=== PATIENT | male | born 1985 | race Caucasian/White ===

== ENCOUNTER 2017-05-03 21:01 | Emergency (ER) | payer MEDICAID ==
--- NOTE | 2017-05-03 21:36 | EDM.PDOC ---
ED HPI GENERAL MEDICAL PROBLEM - General Chief Complaint: General Stated Complaint: PT HAS TOOTHACHE Time Seen by Provider: 05/03/17 21:15 Source of Information: Reports: Patient History Limitations: Reports: No Limitations - History of Present Illness INITIAL COMMENTS - FREE TEXT/NARRATIVE: History of present illness: [Patient presents with numerous dental caries and fractured teeth. Indicates that he's been struggling with continuous multiple areas of abscess and cued including his back upper and lower molars in the area of 15 through 19 as well as front incisors in the area of 7 through 10 and 26 through 23. Indicates he saw his primary care provider was given amoxicillin and some pain medication but he still pending a dental appointment.] Review of systems: As per history of present illness and below otherwise all systems reviewed and negative. Past medical history: As per history of present illness and as reviewed below otherwise noncontributory. Surgical history: As per history of present illness and as reviewed below otherwise noncontributory. Social history: No reported history of drug or alcohol abuse. Family history: As per history of present illness and as reviewed below otherwise noncontributory. Physical exam: HEENT: Atraumatic, normocephalic, pupils reactive, negative for conjunctival pallor or scleral icterus, mucous membranes moist, throat clear, neck supple, nontender, trachea midline. Lungs: Clear to auscultation, breath sounds equal bilaterally, chest nontender. Heart: S1S2, regular, negative for clicks, rubs, or JVD. Abdomen: Soft, nondistended, nontender. Negative for masses or hepatosplenomegaly. Negative for costovertebral tenderness. Pelvis: Stable nontender. Genitourinary: Deferred. Rectal: Deferred. Extremities: Atraumatic, negative for cords or calf pain. Neurovascular unremarkable. Neuro: Awake, alert, oriented. Cranial nerves II through XII unremarkable. Cerebellum unremarkable. Motor and sensory unremarkable throughout. Exam nonfocal. Global assessment is benign save is noted with the significant amount of dental issues as described in history of present illness. Diagnostics: [] Therapeutics: [] Impression: [Dental caries, abscess, fractured teeth] Plan: [Augmentin, Tylenol 3] Definitive disposition and diagnosis as appropriate pending reevaluation and review of above. Left Upper Tooth/Teeth Pain Score (Numeric/FACES): 7 - Related Data Allergies Allergy/AdvReac Type Severity Reaction Status Date / Time No Known Allergies Allergy Verified 05/03/17 21:25 Home Meds: Home Meds . [No Known Home Meds] 05/03/17 [History] Past Medical History Cardiovascular History: Reports: Hypertension Psychiatric History: Reports: Anxiety, Depression, PTSD Hematologic History: Reports: None - Infectious Disease History Infectious Disease History: Reports: Chicken Pox - Past Surgical History Other Musculoskeletal Surgeries/Procedures:: right big toe removed Social & Family History - Family History Family Medical History: Noncontributory - Tobacco Use Smoking Status *Q: Current Every Day Smoker Years of Tobacco use: 31 Packs/Tins Daily: 1 - Caffeine Use Caffeine Use: Reports: Energy Drinks, Soda Caffeine Use Comment: 2-3drinkls each/day - Recreational Drug Use Recreational Drug Use: No ED ROS GENERAL - Review of Systems Review Of Systems: See Below (History of present illness) ED EXAM, GENERAL - Physical Exam Exam: See Below (See history of present illness) Course - Vital Signs Last Recorded V/S: Last Vital Signs Temp 36.0 C 05/03/17 21:13 Pulse 86 05/03/17 21:13 Resp 19 05/03/17 21:13 BP 172/90 H 05/03/17 21:13 Pulse Ox 98 05/03/17 21:13 Departure - Departure Time of Disposition: 21:35 Disposition: Home, Self-Care 01 Condition: Good Clinical Impression: Dental abscess, Dental caries into pulp - Discharge Information Forms: ED Department Discharge Additional Instructions: The following information is given to patients seen in the emergency department who are being discharged to home. This information is to outline your options for follow-up care. We provide all patients seen in our emergency department with a follow-up referral. The need for follow-up, as well as the timing and circumstances, are variable depending upon the specifics of your emergency department visit. If you don't have a primary care physician on staff, we will provide you with a referral. We always advise you to contact your personal physician following an emergency department visit to inform them of the circumstance of the visit and for follow-up with them and/or the need for any referrals to a consulting specialist. The emergency department will also refer you to a specialist when appropriate. This referral assures that you have the opportunity for follow-up care with a specialist. All of these measure are taken in an effort to provide you with optimal care, which includes your follow-up. Under all circumstances we always encourage you to contact your private physician who remains a resource for coordinating your care. When calling for follow-up care, please make the office aware that this follow-up is from your recent emergency room visit. If for any reason you are refused follow-up, please contact the [facility] Emergency Department at and asked to speak to the emergency department charge nurse. Take medication as directed Follow-up with dentist LUIS Return to ED as needed as discussed
[2017-05-03 22:19] VITALS: BP 166/88
== END 2017-05-03 22:15 | disposition home or self-care (01) ==
LOC: MW.ED 21:01
DX: K02.9 Dental caries, unspecified (principal); K04.7 Periapical abscess without sinus; K03.81 Cracked tooth; I10 Essential (primary) hypertension; F17.210 Nicotine dependence, cigarettes, uncomplicated
CPT/HCPCS: 99282; 99283

== ENCOUNTER 2019-01-08 20:03 | Emergency (ER) | payer OTHER ==
[2019-01-08] MEDS ORDERED: Benzocaine 20% Topical Spray UD MUCMEM ONE (20:06)
[2019-01-08] MEDS ORDERED: Lidocaine 2% Viscous Solution 15 ML Cup PO ONE (20:06)
--- NOTE | 2019-01-08 20:07 | EDM.PDOC ---
ED HPI GENERAL MEDICAL PROBLEM - General Chief Complaint: ENT Problem Stated Complaint: PT HAS TOOTHACHE Time Seen by Provider: 01/08/19 20:06 Source of Information: Reports: Patient History Limitations: Reports: No Limitations - History of Present Illness INITIAL COMMENTS - FREE TEXT/NARRATIVE: HISTORY AND PHYSICAL: History of present illness: Patient is a 33-year-old male here with complaint of tooth pain x 4 days. He saw dentist and was given amoxicillin. He states he finished them and has not had any relief of symptoms. He currently can not afford to have tooth pulled. He denies fevers or chills and is otherwise in his usual state of good health. Review of systems: As per history of present illness and below otherwise all systems reviewed and negative. Past medical history: As per history of present illness and as reviewed below otherwise noncontributory. Surgical history: As per history of present illness and as reviewed below otherwise noncontributory. Social history: No reported history of drug or alcohol abuse. Family history: As per history of present illness and as reviewed below otherwise noncontributory. Physical exam: General: Patient sitting comfortably in no acute distress and nontoxic appearing HEENT: Poor dentition throughout. Swelling and erythema of gums of the left lower back molar. Atraumatic, normocephalic, pupils reactive, negative for conjunctival pallor or scleral icterus, mucous membranes moist, throat clear, neck supple, nontender, trachea midline. No meningeal signs. Lungs: Clear to auscultation, breath sounds equal bilaterally, chest nontender. Heart: S1S2, regular, negative for clicks, rubs, or overt murmur. Abdomen: Soft, nondistended, nontender. Negative for masses or hepatosplenomegaly. Negative for costovertebral tenderness. Pelvis: Stable nontender. Genitourinary: Deferred. Rectal: Deferred. Extremities: Atraumatic, negative for cords or calf pain. Neurovascular unremarkable. Neuro: Awake, alert, oriented. Cranial nerves II through XII unremarkable. Cerebellum unremarkable. Motor and sensory unremarkable throughout. Exam nonfocal. Notes: Diagnostics: None Therapeutics: Dental balls Toradol 60mg IM Prescriptions: Clindamycin Impression: Dentalgia, dental infection Plan: 1. Take antibiotic as instructed. Alternate tylenol and motrin and use dental balls as needed. 2. Follow up with dentist. 3. Return to ED As needed as discussed Definitive disposition and diagnosis as appropriate pending reevaluation and review of above. tooth Pain Score (Numeric/FACES): 5 - Related Data Allergies Allergy/AdvReac Type Severity Reaction Status Date / Time No Known Allergies Allergy Verified 01/08/19 20:10 Home Meds: Home Meds Clindamycin HCl 300 mg PO TID 7 Days #21 capsule 01/08/19 [Rx] Past Medical History Cardiovascular History: Reports: Hypertension Psychiatric History: Reports: Anxiety, Depression, PTSD Hematologic History: Reports: None - Infectious Disease History Infectious Disease History: Reports: Chicken Pox - Past Surgical History Other Musculoskeletal Surgeries/Procedures:: right big toe removed Social & Family History - Family History Family Medical History: Noncontributory - Caffeine Use Caffeine Use: Reports: Energy Drinks, Soda Caffeine Use Comment: 2-3drinkls each/day ED ROS ENT - Review of Systems Review Of Systems: ROS reveals no pertinent complaints other than HPI. ED EXAM, ENT - Physical Exam Exam: See Below (see dictation) Course - Vital Signs Last Recorded V/S: Last Vital Signs Temp 97 F 01/08/19 20:03 Pulse 83 01/08/19 20:03 Resp 18 01/08/19 20:03 BP 152/94 H 01/08/19 20:03 Pulse Ox 95 01/08/19 20:03 - Orders/Labs/Meds Orders: Active Orders 24 hr Category Date Time Status Ketorolac [Toradol] Med 01/08/19 20:26 Once 60 mg IM ONETIME ONE Meds: Medications Discontinued Medications Generic Name Dose Route Start Last Admin Trade Name Jose PRN Reason Stop Dose Admin Benzocaine 2 each 01/08/19 20:06 01/08/19 20:18 Hurricaine One 20% MUCMEM 01/08/19 20:07 2 each ONETIME ONE Administration Lidocaine HCl 15 ml 01/08/19 20:06 01/08/19 20:17 Xylocaine 2% Viscous PO 01/08/19 20:07 15 ml ONETIME ONE Administration Departure - Departure Time of Disposition: 20:29 Disposition: Home, Self-Care 01 Condition: Good Clinical Impression: Dentalgia, Dental infection - Discharge Information Forms: ED Department Discharge Additional Instructions: The following information is given to patients seen in the emergency department who are being discharged to home. This information is to outline your options for follow-up care. We provide all patients seen in our emergency department with a follow-up referral. The need for follow-up, as well as the timing and circumstances, are variable depending upon the specifics of your emergency department visit. If you don't have a primary care physician on staff, we will provide you with a referral. We always advise you to contact your personal physician following an emergency department visit to inform them of the circumstance of the visit and for follow-up with them and/or the need for any referrals to a consulting specialist. The emergency department will also refer you to a specialist when appropriate. This referral assures that you have the opportunity for follow-up care with a specialist. All of these measure are taken in an effort to provide you with optimal care, which includes your follow-up. Under all circumstances we always encourage you to contact your private physician who remains a resource for coordinating your care. When calling for follow-up care, please make the office aware that this follow-up is from your recent emergency room visit. If for any reason you are refused follow-up, please contact the [facility] Emergency Department at and asked to speak to the emergency department charge nurse. 1. Take antibiotic as instructed. Alternate tylenol and motrin and use dental balls as needed. 2. Follow up with dentist. 3. Return to ED As needed as discussed - My Orders Last 24 Hours: My Active Orders 01/08/19 20:26 Ketorolac [Toradol] 60 mg IM ONETIME ONE - Assessment/Plan Last 24 Hours: My Active Orders 01/08/19 20:26 Ketorolac [Toradol] 60 mg IM ONETIME ONE
[2019-01-08 20:13] VITALS: BP 152/94
[2019-01-08] MEDS ORDERED: Ketorolac 60 MG/2 ML SDV IM ONE (20:26)
== END 2019-01-08 20:50 | disposition home or self-care (01) ==
LOC: MW.ED 20:03
DX: K04.7 Periapical abscess without sinus (principal)
CPT/HCPCS: 96372; 99282; A9270; J1885; 99283

== ENCOUNTER 2019-01-29 18:01 | Emergency (ER) | payer OTHER ==
--- NOTE | 2019-01-29 18:10 | EDM.PDOC ---
ED HPI GENERAL MEDICAL PROBLEM - General Chief Complaint: Back Pain or Injury Stated Complaint: BACK PAIN Time Seen by Provider: 01/29/19 18:04 Source of Information: Reports: Patient History Limitations: Reports: No Limitations - History of Present Illness INITIAL COMMENTS - FREE TEXT/NARRATIVE: HISTORY AND PHYSICAL: History of present illness: Patient is a 33-year-old male who presents to the emergency room with complaints of lumbar back pain that radiates into the right gluteal down the posterior thigh. He states he does have chronic back pain and does take tramadol daily for this pain. Today he bent over to grab something off the ground when he felt intense pain that radiated down the right leg. He denies any trauma, fall or injury. He denies any urinary or fecal incontinence. Denies any numbness or tingling of the distal extremities. He denies any fever, chills, chest pain, shortness of breath or cough. Denies any abdominal pain, nausea, vomiting, diarrhea or constipation. Patient eats and drinks appropriately Review of systems: As per history of present illness and below otherwise all systems reviewed and negative. Past medical history: As per history of present illness and as reviewed below otherwise noncontributory. Surgical history: As per history of present illness and as reviewed below otherwise noncontributory. Social history: See social history for further information Family history: As per history of present illness and as reviewed below otherwise noncontributory. Physical exam: General: Well-developed and well-nourished 33-year-old male. Alert and oriented. Nontoxic appearing and in no acute distress. HEENT: Atraumatic, normocephalic, pupils equal and reactive bilaterally, negative for conjunctival pallor or scleral icterus, mucous membranes moist, TMs normal bilaterally, throat clear, neck supple, nontender, trachea midline. No drooling or trismus noted. No meningeal signs. No hot potato voice noted. Lungs: Clear to auscultation, breath sounds equal bilaterally, chest nontender. Heart: S1S2, regular rate and rhythm without overt murmur Abdomen: Soft, nondistended, nontender. Negative for masses or hepatosplenomegaly. Negative for costovertebral tenderness. Pelvis: Stable nontender. Genitourinary: Deferred. Rectal: Deferred. Skin: Intact, warm, dry. No lesions or rashes noted. Extremities: Atraumatic, negative for cords or calf pain. Neurovascular unremarkable. C-spine/Back: No pinpoint or tibial tenderness upon palpation. No crepitus, step -offs or obvious deformities. He does have some paraspinous muscular tenderness bilaterally which radiates into the right gluteal and posterior thigh. Patient is ambulatory and able to walk without any difficulty or deficits. Stable to rock on his heels and toes. Denies any urinary or fecal incontinence. He denies any numbness, tingling or satellite anesthesias. Neuro: Awake, alert, oriented. Cranial nerves II through XII unremarkable. Cerebellum unremarkable. Motor and sensory unremarkable throughout. Exam nonfocal. Notes: Lumbar x-ray shows mild scoliosis of the lumbar spine. Patient does already take tramadol multiple times daily for chronic back pain. I will give him a prescription for Norflex and diclofenac. Encouraged him to follow up with his primary care provider, Dr. Jones. Supportive care measures were reviewed and discussed. Voices understanding and is agreeable to plan of care. Denies any further questions or concerns at this time. Diagnostics: Lumbar spine x-ray Therapeutics: Norflex, Toradol Prescription: Norflex, diclofenac Impression: Lumbar back pain with sciatica (acute on chronic) Plan: 1. Avoid being immobile for long periods of time as this can increase your back pain. Gentle heat and stretching to the area 2. Norflex and diclofenac twice daily for pain management. Please do not take this medication while taking her tramadol as both medications may cause drowsiness. 3. Please follow-up with Dr. Jones for further evaluation and management as we discussed. Return to the ED as needed and as discussed. Definitive disposition and diagnosis as appropriate pending reevaluation and review of above. Low BAck Pain Score (Numeric/FACES): 7 - Related Data Allergies Allergy/AdvReac Type Severity Reaction Status Date / Time No Known Allergies Allergy Verified 01/29/19 18:07 Home Meds: Home Meds Diclofenac Sodium [Voltaren] 75 mg PO BIDMEALS PRN #30 tab.cr 01/29/19 [Rx] Orphenadrine [Norflex] 100 mg PO BID PRN #16 tab 01/29/19 [Rx] traMADol [Ultram] 50 mg PO DAILY 01/29/19 [History] Past Medical History Cardiovascular History: Reports: Hypertension Psychiatric History: Reports: Anxiety, Depression, PTSD Hematologic History: Reports: None - Infectious Disease History Infectious Disease History: Reports: Chicken Pox - Past Surgical History Other Musculoskeletal Surgeries/Procedures:: right big toe removed Social & Family History - Family History Family Medical History: Noncontributory - Caffeine Use Caffeine Use: Reports: Energy Drinks, Soda Caffeine Use Comment: 2-3drinkls each/day ED ROS GENERAL - Review of Systems Review Of Systems: ROS reveals no pertinent complaints other than HPI. ED EXAM,LOWER BACK PAIN/INJURY - Physical Exam Exam: See Below (See dictation) Course - Vital Signs Last Recorded V/S: Last Vital Signs Temp 96.6 F 01/29/19 18:08 Pulse 76 01/29/19 18:08 Resp 18 01/29/19 18:08 BP 149/76 H 01/29/19 18:08 Pulse Ox 98 01/29/19 18:08 - Orders/Labs/Meds Orders: Active Orders 24 hr Category Date Time Status Lumbar Spine 2 or 3V [CR] Stat Exams 01/29/19 18:21 Taken Meds: Medications Discontinued Medications Generic Name Dose Route Start Last Admin Trade Name Freq PRN Reason Stop Dose Admin Ketorolac Tromethamine 60 mg 01/29/19 18:21 01/29/19 18:30 Toradol IM 01/29/19 18:22 60 mg ONETIME ONE Administration Orphenadrine Citrate 60 mg 01/29/19 18:21 01/29/19 18:30 Norflex IM 01/29/19 18:22 60 mg NOW STA Administration Departure - Departure Time of Disposition: 19:08 Disposition: Home, Self-Care 01 Clinical Impression: Lumbar back pain - Discharge Information Prescriptions: Diclofenac Sodium [Voltaren] 75 mg PO BIDMEALS PRN #30 tab.cr PRN Reason: Pain Orphenadrine [Norflex] 100 mg PO BID PRN #16 tab PRN Reason: Muscle Spasm Instructions: Back Pain, Adult Referrals: Benedict Trejo MD [Primary Care Provider] - Forms: ED Department Discharge Additional Instructions: The following information is given to patients seen in the emergency department who are being discharged to home. This information is to outline your options for follow-up care. We provide all patients seen in our emergency department with a follow-up referral. The need for follow-up, as well as the timing and circumstances, are variable depending upon the specifics of your emergency department visit. If you don't have a primary care physician on staff, we will provide you with a referral. We always advise you to contact your personal physician following an emergency department visit to inform them of the circumstance of the visit and for follow-up with them and/or the need for any referrals to a consulting specialist. The emergency department will also refer you to a specialist when appropriate. This referral assures that you have the opportunity for follow-up care with a specialist. All of these measure are taken in an effort to provide you with optimal care, which includes your follow-up. Under all circumstances we always encourage you to contact your private physician who remains a resource for coordinating your care. When calling for follow-up care, please make the office aware that this follow-up is from your recent emergency room visit. If for any reason you are refused follow-up, please contact the [facility] Emergency Department at and asked to speak to the emergency department charge nurse. [facility] [address] [place] [address] [place] [address] 1. Avoid being immobile for long periods of time as this can increase your back pain. Gentle heat and stretching to the area 2. Norflex and diclofenac twice daily for pain management. Please do not take this medication while taking her tramadol as both medications may cause drowsiness. 3. Please follow-up with Dr. Jones at [facility], for further evaluation and management as we discussed. Return to the ED as needed and as discussed. - My Orders Last 24 Hours: My Active Orders 01/29/19 18:21 Lumbar Spine 2 or 3V [CR] Stat - Assessment/Plan Last 24 Hours: My Active Orders 01/29/19 18:21 Lumbar Spine 2 or 3V [CR] Stat
[2019-01-29] MEDS ORDERED: Ketorolac 60 MG/2 ML SDV IM ONE (18:21)
--- NOTE | 2019-01-29 19:18 | CR ---
HISTORY: Back pain COMPARISON: None available. FINDINGS: The lumbar spine was examined with AP, lateral, and lateral spot views for a total of three views. There is mild scoliosis of the lumbar spine convex towards the right with the apex at the L3 level. There is no sign of fracture or subluxation. The vertebral bodies are normal in height and they are in anatomic alignment. The disc spaces are normal in height as well. The visualized bony pelvis and bowel gas pattern are normal in appearance. IMPRESSION: Mild scoliosis of the lumbar spine convex towards the right. Otherwise normal lumbar spine. Dictated by Denis Flowers MD @ Jan 29 2019 7:16PM Signed by Dr. Denis Flowers @ Jan 29 2019 7:17PM
[2019-01-29 19:28] VITALS: BP 121/73
== END 2019-01-29 19:26 | disposition home or self-care (01) ==
LOC: MW.ED 18:01
DX: M54.41 Lumbago with sciatica, right side (principal); F41.9 Anxiety disorder, unspecified; F32.9 Major depressive disorder, single episode, unspecified; Z79.899 Other long term (current) drug therapy
CPT/HCPCS: 72100; 96372; 99283; J1885; J2360